=== PATIENT | male | born 1950 | race Caucasian/White ===

== ENCOUNTER 2020-02-11 09:05 | Emergency (ER) | payer MEDICARE, SELFPAY ==
--- NOTE | ~2020-02-11 | US_ITS ---
EXAMINATION:US venous doppler LE LT INDICATION:Left leg swelling TECHNIQUE: Multiple grayscale, color flow and Doppler images of the left lower extremity deep venous systems were obtained and reviewed. COMPARISON:No prior studies for comparison. FINDINGS: The common femoral, superficial femoral and popliteal veins demonstrate normal respiratory variation, augmentation and compressibility. Color flow is also seen within the posterior tibial, pe roneal, greater saphenous and profunda veins. IMPRESSION: 1: No lower extremity deep venous thrombosis. Reviewed, dictated and finalized at location A.
[2020-02-11 09:11] VITALS: BP 163/51; PULSE 71; RESP 18; TEMP 36.2; O2SAT 100
--- NOTE | 2020-02-11 10:03 | ED.LOWEXIN ---
HPI - Extremity Injury (Lower) General Chief Complaint: Extremity Injury, Lower Stated Complaint: possible blood clot left leg Time Seen by Provider: 02/11/20 09:19 History of Present Illness HPI Narrative: Patient is a 69-year-old male who presents ER with left lower extremity swelling. He had bumped his left dickson previously in the week and had an area of swelling. That is since gone down and his lower extremity has swelled around the ankle. He has some bruising dependently under his ankles bilaterally. No numbness or tingling. He is without any chest pain or shortness of breath. No history of DVT previously. Referred here by his PCP for DVT rule out. Related Data Home Medications Medication Instructions Recorded Confirmed cholecalciferol (vitamin D3) 125 mcg PO DAILY 02/11/20 [Vitamin D3] vitamin B complex [B 1 tablet PO DAILY 02/11/20 Complex-Vitamin B12] Allergies Allergy/AdvReac Type Severity Reaction Status Date / Time No Known Allergies Allergy Verified 02/11/20 09:24 Review of Systems Cardiovascular: Cardiovascular: Denies chest pain and Denies radiating jaw, neck or arm pain Respiratory: Respiratory: Denies cough and Denies dyspnea Musculoskeletal: Comments: Left lower extremity swelling and bruising. PMFSH Past Medical History Medical History (Updated 02/11/20 @ 10:09 by Jerry Machado MD) Anxiety Kidney stones Obstructive sleep apnea Surgical History Surgical History (Updated 02/11/20 @ 10:05 by Jerry Machado MD) No history of previous surgery Social History Social History Gender identity (if verbalized by the patient): Male Exam Narrative: Exam Narrative: GENERAL: Well-appearing, well-nourished, and in no acute distress. HEAD: Normocephalic, atraumatic. HEART: Regular rate and rhythm. Normal peripheral pulses. ABDOMEN: Soft, nontender, nondistended. EXTREMITIES: Normal range of motion. 2+ edema L>R. SKIN: Warm, dry, nburising inferior to ankles on left. NEURO: Alert and oriented x3. Course Vital Signs Vital signs: Vital Signs Temperature 97.1 F L 02/11/20 09:11 Pulse Rate 71 02/11/20 09:11 Respiratory Rate 18 02/11/20 09:11 Blood Pressure 163/51 H 02/11/20 09:11 Pulse Oximetry 100 02/11/20 09:11 Temperature 97.1 F L 02/11/20 09:11 Pulse Rate 71 02/11/20 09:11 Respiratory Rate 18 02/11/20 09:11 Blood Pressure 163/51 H 02/11/20 09:11 Pulse Oximetry 100 02/11/20 09:11 MDM - Extremity Injury (Lower) Imaging Data Radiologist's impression: ITS Impressions Venous Doppler Study 02/11/20 09:41 IMPRESSION: 1: No lower extremity deep venous thrombosis. Discharge Plan Discharge Clinical Impression: Edema of left lower leg Patient Disposition: Home, Self-Care Condition: Stable Instructions: Edema (ED) Additional Instructions: Return the ER if you have chest pain or shortness of breath, you cannot keep down food or water, you have fever over 100.4 ?F, you have additional concerns. Prescriptions: No Action vitamin B complex [B Complex-Vitamin B12] Tablet 1 tablet PO DAILY RF: 0 cholecalciferol (vitamin D3) [Vitamin D3] 125 mcg (5,000 unit) Tablet 125 mcg PO DAILY RF: 0 Follow-up/Referrals: PHYSICIAN NOT ON STAFF,NONSTAFF [Primary Care Provider] - 1 Week
== END 2020-02-11 10:16 | disposition home or self-care (01) ==
PROVIDERS: Emergency Provider Emergency Medicine
DX: R60.0 Localized edema (principal); G47.33 Obstructive sleep apnea (adult) (pediatric)
CPT/HCPCS: 93971; 99284

== ENCOUNTER 2022-04-17 13:29 | Emergency (ER) | payer MEDICARE, SELFPAY ==
--- NOTE | ~2022-04-17 | CT_ITS ---
EXAMINATION: CT abdomen pelvis w con INDICATION: Left lower quadrant pain TECHNIQUE: Computed tomographic images of the abdomen and pelvis were obtained after the administrati on of 100 cc of Omnipaque 350 intravenous contrast. The dose-length product (DLP) was 1454.43 mGy-cm. Automated exposure control and iterative reconstruction technique were employed. COMPARISON: 04/12/2016 FINDINGS: Minimal dependent atelectasis is present in the lung bases. The heart size is normal. There is a small sliding hiatal hernia. The liver, spleen, pancreas, gallbladder, and adrenal glands are n ormal. There are peripelvic cysts of the kidneys. There is a 2 mm stone in the distal left ureter whi ch causes mild left hydroureteronephrosis. No pathologically enlarged abdominal or pelvic lymph nodes are identified. There is calcified atherosclerosis of the aorta and many of the other arteries. [place] earle diverticulosis is present without evidence of diverticulitis. There is mild lumbar spondylosis. IMPRESSION: 1. 2 mm stone of the distal left ureter causing mild left hydroureteronephrosis. Reviewed, dictated and finalized at location F. RIBUTION DISPATCHER IMPRESSION: 1. 2 mm stone of the distal left ureter causing mild left hydroureteronephrosis .
--- NOTE | ~2022-04-17 | XR_ITS ---
EXAMINATION: XR abdomen/kub 1V INDICATION: Left ureteral stone TECHNIQUE: Supine views of the abdomen were obtained on 2 radiographs. COMPARISON: CT from today FINDINGS: There is moderate left hydroureteronephrosis. 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 The [address] described on CT is not definitely identified. Contrast from earlier CT opacifies the urinary bladder which may obscure the stone. There is mild osteoarthrit is of the hips. IMPRESSION: 1. Known distal left ureteral stone not definitely identified, possibly obscured by contrast material in the urinary bladder. Reviewed, dictated and finalized at location F. TABOUT HAND IMPRESSION: 1. Known distal left ureteral stone not definitely identified, possibly obscure d by contrast material in the urinary bladder.
[2022-04-17 14:04] VITALS: BP 151/69; PULSE 64; RESP 18; TEMP 36.7; O2SAT 98
[2022-04-17 14:33] LABS: Appearance Urine Clear (Clear); Bilirubin Urine Negative (Negative); Blood Urine Trace-intact (Negative); Color Urine Yellow (Yellow); Glucose Urine UA Negative (Negative); Ketones Urine Trace mg/dL (Negative); Leukocyte Esterase Ur Negative LEU/UL (Negative); Nitrate Urine Negative (Negative); Protein Urine Trace mg/dL (Negative); Urobilinogen Urine 0.2 mg/dL (<2.0); pH Urine 7.5 (5.0-9.0)
[2022-04-17 14:39] LABS: Mucus Urine Rare /lpf; WBC Urine 0-3 /hpf
[2022-04-17 14:40] LABS: Basophils Percent Auto 0.3 % (0.2-1.2); Eosinophils Percent Auto 0.3 % (0-4.4); Hematocrit 41.9 % (42.0-52.0); Hemoglobin 14.4 g/dL (14.0-18.0); Immature Granulocyte Absolute 0.07 K/mm3 (0.00-0.031); Immature Granulocyte Percent A 0.6 % (0-0.5); Lymphocytes Absolute Auto 0.99 K/mm3 (0.9-3.2); Mean Corpuscular HGB Conc 34.4 g/dl (32-36); Mean Corpuscular Hemoglobin 32.2 pg (26-34); Mean Corpuscular Volume 93.7 fl (80-100); Mean Platelet Volume 10.8 fl (7.4-10.4); Monocytes Absolute Auto 1.1 K/mm3 (0.1-0.6); Monocytes Percent Auto 9.6 % (2.6-8.5); Neutrophils Absolute Auto 8.8 K/mm3 (1.3-6.7); Neutrophils Percent Auto 80.2 % (45.5-73.1); Platelet Count Result 207 k/mm3 (150-375); Red Blood Count 4.47 M/mm3 (4.6-6.20); Red Cell Distribution Width 12.7 % (11.5-14.5)
[2022-04-17 14:41] LABS: Add Urine Microscopic? YES
[2022-04-17 14:42] LABS: Alanine Aminotransferase 22 U/L (6-50); Albumin Level 4.2 g/dL (3.5-5.1); Alkaline Phosphatase 61 U/L (38-126); Anion Gap 11 mmol/L (8-16); Aspartate Amino Transferase 30 U/L (17-59); Bilirubin,Total 0.7 mg/dL (0.2-1.3); Blood Urea Nitrogen 10 mg/dL (9-20); Calcium 8.9 mg/dL (8.4-10.2); Carbon Dioxide 28 mmol/L (22-30); Chloride 99 mmol/L (98-107); Estimated CRCL calculation 59 ml/min; Estimated Glomerular Filt Rate 54; Glucose 120 mg/dL (65-110); Lipase 82 U/L (23-300); Potassium 4.4 mmol/L (3.4-5.0); Sodium 138 mmol/L (137-145)
--- NOTE | 2022-04-17 17:23 | ED.ABDPAIN ---
HPI - Abdominal Pain General Chief Complaint: Abdominal Pain Stated Complaint: ABD PAIN Time Seen by Provider: 04/17/22 17:17 Source: RN notes reviewed History of Present Illness HPI narrative: Patient presents emergency room from home for abdominal pain. Patient states pain began approximately 30 this morning. The pain is located left lower quadrant and radiates around to the back described as sharp and stabbing in nature. States is associated with nausea. Denies any fevers or chills vomiting or diarrhea. Patient states he did take ibuprofen earlier today with minimal relief states he does have a history of kidney stones Related Data Home Medications Medication Instructions Recorded Confirmed cholecalciferol (vitamin D3) 125 125 mcg PO DAILY 02/11/20 mcg (5,000 unit) tablet (Vitamin D3) vitamin B complex (B 1 tablet PO DAILY 02/11/20 Complex-Vitamin B12 tablet) Allergies Allergy/AdvReac Type Severity Reaction Status Date / Time No Known Allergies Allergy Verified 02/11/20 09:24 Review of Systems Review of Systems: Gen.: Denies fevers or chills ENT: Denies congestion Respiratory: Denies shortness of breath or cough CV: Denies chest pain or palpitations GI: See HPI denies burning, urgency, frequency or hematuria Musculoskeletal: Denies back pain or muscle pain Neuro: Denies numbness, tingling, weakness or focal weakness Skin: Denies rash Except as documented, all other systems reviewed and negative [facility] Past Medical History Medical History Anxiety Kidney stones Obstructive sleep apnea Surgical History Surgical History (Updated 02/11/20 @ 10:05 by Jerry Machado MD) No history of previous surgery Social History Social History (Updated 04/17/22 @ 17:24 by Morgan Bella DO) Smoking status: Never smoker Gender identity (if verbalized by the patient): Male Exam Narrative: APPEARANCE: No acute distress, nontoxic, resting in bed HEENT: Normocephalic, atraumatic, OMM RESPIRATORY: No respiratory distress, clear to auscultation bilaterally with no rhonchi wheezing or rales CARDIOVASCULAR: RRR s murmur ABDOMINAL: Soft nondistended tender palpation left upper quadrant left lower quadrant no tenderness in right upper quadrant right lower quadrant no rebound or guarding MUSCULOSKELETAl: Moves all extremities. No clubbing, cyanosis or edema. NEURO: Awake and alert. Following commands, speech normal, no focal deficits SKIN:: Warm, dry. Normal Color PSYCHIATRIC: Normal affect/mood Course Course Emergency Course: Patient states he is feeling much better at this time ready for discharge Discussed with patient results of workup and diagnosis. Discussed need for follow-up with primary care, proper use of medication, and reasons to return to the emergency department. Patient understands and agrees to current treatment plan Vital Signs Vital signs: Vital Signs Temperature 98.1 F 04/17/22 14:04 Pulse Rate 64 04/17/22 14:04 Respiratory Rate 18 04/17/22 14:04 Blood Pressure 151/69 H 04/17/22 14:04 Pulse Oximetry 98 04/17/22 14:04 Oxygen Delivery Room Air 04/17/22 14:04 Temperature 98.1 F 04/17/22 14:04 Pulse Rate 64 04/17/22 14:04 Respiratory Rate 18 04/17/22 14:04 Blood Pressure 151/69 H 04/17/22 14:04 Pulse Oximetry 98 04/17/22 14:04 Oxygen Delivery Room Air 04/17/22 14:04 MDM - Abdominal Pain Lab Data Result diagrams: 04/17/22 14:18 04/17/22 14:18 Labs: Lab Results 04/17/22 04/17/22 04/17/22 Range/Units 14:18 14:18 14:25 WBC 11.0 H (4.5-10.0) K/mm3 RBC 4.47 L (4.6-6.20) M/mm3 Hgb 14.4 (14.0-18.0) g/dL Hct 41.9 L (42.0-52.0) % MCV 93.7 (80-100) fl MCH 32.2 (26-34) pg MCHC 34.4 (32-36) g/dl RDW 12.7 (11.5-14.5) % Plt Count 207 (150-375) k/mm3 MPV 10.8 H (7.4-10.4) fl Immature Gran % (Aut
[2022-04-17] MEDS: MORPHINE SULFATE (*CRX) 4 MG/ML INJ IV PUSH (17:39)
[2022-04-17] MEDS: ONDANSETRON INJ 4 MG/2 ML VIAL IV PUSH (17:39)
[2022-04-17] MEDS: SODIUM CHLORIDE 0.9% IV 1,000 ML 999 ML IV CONT (17:39)
[2022-04-17] MEDS: TAMSULOSIN HCL 0.4 MG CAPSULE PO (18:28)
[2022-04-17] MEDS: KETOROLAC 15 MG/ML VIAL (*BKC) IV PUSH (18:55)
== END 2022-04-17 19:50 | disposition home or self-care (01) ==
PROVIDERS: Emergency Medicine; Emergency Provider Emergency Medicine
DX: N13.2 Hydronephrosis with renal and ureteral calculous obstruction (principal); Z87.442 Personal history of urinary calculi; G47.33 Obstructive sleep apnea (adult) (pediatric); Q62.5 Duplication of ureter
CPT/HCPCS: 36415; 74018; 74177; 80053; 81001; 83690; 85025; 96361; 96374; 96375; 99284; A9270; J1885; J2270; J2405; J7030; Q9967

== ENCOUNTER → 2023-03-26 11:21 | Outpatient (CLI) | payer MEDICARE, SELFPAY ==
--- NOTE | ~2023-03-26 | XR_ITS ---
XR knee RT min 4V 03/26/2023 11:39 Indication: Right knee pain Procedure: 4 views right knee Comparison: No prior studies for comparison. Findings: There is anatomic alignment. No significant joint space narrowing. No joint effusion. No fr acture or traumatic malalignment. Impression: 1: No significant bone or joint abnormality. Reviewed, dictated and finalized at location L. Impression: 1: No significant bone or joint abnormality.
== END ==
PROVIDERS: PCP Family Medicine; Visit Provider Family Medicine
DX: M25.561 Pain in right knee (principal)
CPT/HCPCS: 73564

== ENCOUNTER 2023-05-13 08:50 | Outpatient (CLI) | payer MEDICARE, SELFPAY ==
[2023-05-13 12:40] LABS: Basophils Percent Auto 0.4 % (0.2-1.2); Eosinophils Absolute Auto 0.1 K/mm3 (0-0.3); Eosinophils Percent Auto 1.3 % (0-4.4); Hematocrit 46.6 % (42.0-52.0); Hemoglobin 15.4 g/dL (14.0-18.0); Immature Granulocyte Absolute 0.03 K/mm3 (0.00-0.031); Immature Granulocyte Percent A 0.4 % (0-0.5); Lymphocytes Absolute Auto 1.22 K/mm3 (0.9-3.2); Lymphocytes Percent Auto 17.1 % (18.3-44.2); Mean Corpuscular Hemoglobin 32.5 pg (26-34); Mean Corpuscular Volume 98.3 fl (80-100); Mean Platelet Volume 10.8 fl (7.4-10.4); Monocytes Absolute Auto 0.9 K/mm3 (0.1-0.6); Monocytes Percent Auto 12.3 % (2.6-8.5); Neutrophils Absolute Auto 4.9 K/mm3 (1.3-6.7); Neutrophils Percent Auto 68.5 % (45.5-73.1); Platelet Count Result 200 k/mm3 (150-375); Red Blood Count 4.74 M/mm3 (4.6-6.20); Red Cell Distribution Width 13.3 % (11.5-14.5); White Blood Count 7.2 K/mm3 (4.5-10.0)
[2023-05-13 12:55] LABS: Alanine Aminotransferase 25 U/L (6-50); Albumin Level 4.3 g/dL (3.5-5.1); Alkaline Phosphatase 62 U/L (38-126); Anion Gap 8 mmol/L (8-16); Aspartate Amino Transferase 54 U/L (17-59); Bilirubin,Total 1.5 mg/dL (0.2-1.3); Blood Urea Nitrogen 11 mg/dL (9-20); Calcium 9.3 mg/dL (8.4-10.2); Carbon Dioxide 26 mmol/L (22-30); Chloride 102 mmol/L (98-107); Estimated Glomerular Filt Rate > 60; Glucose 95 mg/dL (65-110); Potassium 4.2 mmol/L (3.4-5.0); Sodium 136 mmol/L (137-145)
[2023-05-13 13:09] LABS: Free T4 Free Thyroxine 1.71 ng/mL (0.78-2.19)
[2023-05-13 13:15] LABS: Prostate Specific Antigen 1.1 ng/mL (< OR = 4.0)
[2023-05-13 13:33] LABS: Hemoglobin A1C 5.6 % (<5.7)
== END 2023-05-13 08:51 | disposition home or self-care (01) ==
LOC: ANHGOSHLAB 08:52
PROVIDERS: PCP Family Medicine; Visit Provider Family Medicine
DX: Z12.5 Encounter for screening for malignant neoplasm of prostate (principal); R73.9 Hyperglycemia, unspecified; E55.9 Vitamin D deficiency, unspecified; G47.33 Obstructive sleep apnea (adult) (pediatric); R53.83 Other fatigue
CPT/HCPCS: 36415; 80053; 82306; 83036; 84153; 84439; 84443; 85025; G0103

== ENCOUNTER 2023-07-12 18:51 | Emergency (ER) | payer MEDICARE, SELFPAY ==
[2023-07-12 18:53] VITALS: BP 176/68; PULSE 70; RESP 18; TEMP 36.5; O2SAT 99
--- NOTE | 2023-07-12 19:02 | PC.NURSE ---
Upon taking patients home dressing off the bleeding had stopped so pt decided to go home with dressing in place.
== END 2023-07-12 19:52 | disposition left against medical advice (07) ==
LOC: ANHED 19:45
DX: S61.204A Unspecified open wound of right ring finger without damage to nail, initial encounter (principal); W27.4XXA Contact with kitchen utensil, initial encounter
CPT/HCPCS: 99199

== ENCOUNTER 2024-04-02 16:34 | Emergency (ER) | payer MEDICARE, SELFPAY ==
--- NOTE | ~2024-04-02 | XR_ITS ---
XR finger 3rd RT min 2V DATE: 04/02/2024 17:10 INDICATION: Injury to distal third digit TECHNIQUE: 4 views COMPARISON: None FINDINGS: Prominent dorsal spurring of the base of the distal phalanx. No fracture or dislocation, periosteal reaction or bone destruction or radiopaque soft tissue foreign body or subcutaneous emphysema. IMPRESSION: No fracture or dislocation Reviewed, dictated and finalized at location A. IMPRESSION: No fracture or dislocation
[2024-04-02 16:45] VITALS: BP 139/70; PULSE 58; RESP 20; TEMP 37.1; O2SAT 96
--- NOTE | 2024-04-02 16:49 | ED_ITS ---
HPI - General Adult General Chief complaint: Extremity Injury, Upper Stated complaint: right middle finger swollen Source: patient Mode of arrival: ambulatory Limitations: no limitations History of Present Illness HPI narrative: 73-year-old male presented for complaint of right middle finger pain and swelling after injury yesterday. He states he struck the finger on a wall when he reached his arm out quickly to prevent a fall. Pain is reported to the DIP joint of the middle finger, and reports painful range of motion. Denies deformity. Took ibuprofen this morning. Related Data Allergies Allergy/AdvReac Type Severity Reaction Status Date / Time No Known Allergies Allergy Verified 04/02/24 17:03 Review of Systems Review of Systems: CONSTITUTIONAL: Denies body aches, fever, chills CARDIOVASCULAR: Denies chest pain, palpitations, or edema. RESPIRATORY: Denies cough or dyspnea. SKIN: Denies wounds. MUSCULOSKELETAL: Reports right middle finger pain NEUROLOGIC: Denies headache, numbness, tingling, or weakness. All systems reviewed & are unremarkable except as noted in HPI and below PMFSH Past Medical History Medical History Anxiety Arthritis Basal cell carcinoma (BCC) Kidney stones Obstructive sleep apnea Surgical History Surgical History No history of previous surgery Family History Family History Sibling Basal cell carcinoma (BCC) Anxiety Depression Social History Social History Smoking status: Former smoker Additional smoking assessment comments: quit over 30 years ago, smoked 8-10 years Alcohol intake: current Alcohol use details: 1-2 every couple of months Substance use: never Lack of Transportation: No Lack of Food: Never True Current Housing: I Have Housing Concerned About Future Housing: No Difficulty Paying Gas/Electric Bills: No Difficulty Paying for Meds: No Currently Unemployed: No Education: Bachelor's Degree Difficulty w/ Childcare or Family Care: No Gender identity (if verbalized by the patient): Male Comments At time of signature, I have reviewed and agree with nursing past medical, surgical, social and family history unless otherwise noted. Please see nursing chart for further information. There is no relevant family history pertinent to the presenting complaint Exam Narrative: GENERAL: Well-appearing CHEST: Speaks in full sentences. No respiratory distress. HEART: Regular rate and rhythm. Normal and equal peripheral pulses. EXTREMITIES: Right hand has normal strength and sensation, decreased range of motion of the right 3rd digit DIP due to pain with movement. Mild swelling over the DIP with firm tender subcutaneous nodule. No open wounds, or obvious deformity; alignment normal, pulse palpable and equal bilaterally, skin warm, dry, pink. Capillary refill less than 3 seconds. SKIN: Warm, dry NEURO: Alert and oriented x3. PSYCH: Normal mood and affect Course Course Emergency Course: Patient is aware of diagnosis, understands and agrees to treatment plan. Anticipatory guidance given. Patient agrees to follow-up as directed and is aware of reasons to seek care at the emergency department. Portions of this record may have been created with voice recognition software Level of Care: Express Care Visit Vital Signs Vital signs: Reviewed Procedures Orthopedic Splinting/Casting right 3rd digit: Upper Extremity Immobilizer: aluminum form splint Medical Decision Making [facility] Narrative Medical decision making narrative: Discussed physical exam findings and x-ray, metal finger splint applied. Advised supportive measures and signs/symptoms to go to the ER. Pt is appropriate for outpt treatment and f/u. Differential Diagnosis Differential Diagnosis: Finger sprain, dislocation, fracture Imaging Data Radiologist's impression: Patient: Axel Webb Jr. : 1950 MR#: [id number] Age: 73 Acct:[id number] Loc: [facility] ADM Date: 04/02/24Attending Dr: Ordering Physician: America Loera APRN Date of Service: 04/02/24 Procedure(s): XR finger 3rd RT min 2V Accession Number(s): [id number] cc: Diana Rm DO; Amercia Loera APRN~ XR finger 3rd RT min 2V DATE: 04/02/2024 17:10 INDICATION: Injury to distal third digit TECHNIQUE: 4 views COMPARISON: None FINDINGS: Prominent dorsal spurring of the base of the distal phalanx. No fracture or dislocation, periosteal reaction or bone destruction or radiopaque soft tissue foreign body or subcutaneous emphysema. IMPRESSION: No fracture or dislocation Discharge Plan Discharge Clinical Impression: Finger pain, right Patient Disposition: Home, Self-Care Condition: Stable Instructions: Finger Sprain (ED) Additional Instructions: Rest and elevate the right hand Apply ice 15-20 minute intervals several times a day You can use a metal finger splint to keep it protected in to reduce pain with movement, however remember to take it off frequently to perform gentle range of motion exercises Motrin alternate with Tylenol every 8 hours as needed Follow up with your primary care provider next week Go to the ER for worsening symptoms or concerns Prescriptions: No Action (DME) CPAP Equipment See Rx Instructions .Route .MEDSUPPLY Qty: 1 0RF Rx Instructions: Rx: Alfred Fx nasal pillow Fit Pk., CPAP filters and tubing Dx: G47.33 DME: [facility] Length of Treatment: 99+ months *Please link me to patient's machine through [facility]* Physician: Dr. Diana Rm DO Follow-up/Referrals: Diana Rm DO [Primary Care Provider] -
== END 2024-04-02 17:28 | disposition home or self-care (01) ==
PROVIDERS: Emergency Provider Nurse Practitioner Family; PCP Family Medicine
DX: M79.644 Pain in right finger(s) (principal); M19.90 Unspecified osteoarthritis, unspecified site; Z85.828 Personal history of other malignant neoplasm of skin; Z87.891 Personal history of nicotine dependence
CPT/HCPCS: 29130; 73140; 99213; G0463

== ENCOUNTER 2024-05-19 11:20 | Outpatient (CLI) | payer MEDICARE, SELFPAY ==
[2024-05-19 12:34] LABS: Basophils Percent Auto 0.5 % (0.2-1.2); Eosinophils Absolute Auto 0.1 K/mm3 (0-0.3); Eosinophils Percent Auto 1.7 % (0-4.4); Hematocrit 41.9 % (42.0-52.0); Hemoglobin 14.3 g/dL (14.0-18.0); Immature Granulocyte Absolute 0.02 K/mm3 (0.00-0.031); Immature Granulocyte Percent A 0.3 % (0-0.5); Lymphocytes Absolute Auto 1.46 K/mm3 (0.9-3.2); Mean Corpuscular HGB Conc 34.1 g/dl (32-36); Mean Corpuscular Hemoglobin 33.3 pg (26-34); Mean Corpuscular Volume 97.4 fl (80-100); Monocytes Absolute Auto 0.9 K/mm3 (0.1-0.6); Monocytes Percent Auto 13.6 % (2.6-8.5); Neutrophils Absolute Auto 4.1 K/mm3 (1.3-6.7); Neutrophils Percent Auto 61.9 % (45.5-73.1); Platelet Count Result 189 k/mm3 (150-375); Red Cell Distribution Width 12.7 % (11.5-14.5); White Blood Count 6.6 K/mm3 (4.5-10.0)
[2024-05-19 13:05] LABS: Cholesterol 160 mg/dL (0-200); HDL Direct 31 mg/dL; Triglycerides 213 mg/dL (<150)
[2024-05-19 13:13] LABS: Vitamin D 25 Hydroxy 23.5 ng/mL
[2024-05-19 13:18] LABS: LDL Cholesterol Direct 84 mg/dL
[2024-05-19 13:37] LABS: Prostate Specific Antigen 1.3 ng/mL (< OR = 4.0)
[2024-05-19 14:55] LABS: Hemoglobin A1C 5.6 % (<5.7)
== END 2024-05-19 11:21 | disposition home or self-care (01) ==
PROVIDERS: PCP Family Medicine; Visit Provider Family Medicine
DX: R53.83 Other fatigue (principal); R73.9 Hyperglycemia, unspecified; E55.9 Vitamin D deficiency, unspecified; E66.9 Obesity, unspecified; Z12.5 Encounter for screening for malignant neoplasm of prostate
CPT/HCPCS: 36415; 80061; 82306; 83036; 84153; 84439; 84443; 85025; G0103

== ENCOUNTER 2024-10-13 11:50 | Outpatient (CLI) | payer MEDICARE, SELFPAY ==
--- NOTE | ~2024-10-13 | XR_ITS ---
AP view of the pelvis and AP and lateral views of the lateral hips Clinical history: Pain Findings: No acute fracture or dislocation is seen. Osseous alignment is anatomic. There is minimal d egenerative change of the right hip joint. Left hip joint intact. Soft tissues are unremarkable. Impression: Minimal degenerative change of the right hip joint. Reviewed, dictated and finalized at location . Impression: Minimal degenerative change of the right hip joint.
--- NOTE | ~2024-10-13 | XR_ITS ---
Right Shoulder Technique: AP and scapular Y views were obtained. Clinical History: Pain Findings: No fracture or dislocation is seen. Osseous alignment is anatomic. The glenohumeral and acr omioclavicular joint distention mild degenerative change. Soft tissues are unremarkable. Impression: Mild degenerative changes, as above. Reviewed, dictated and finalized at location . Impression: Mild degenerative changes, as above.
== END 2024-10-13 11:51 | disposition home or self-care (01) ==
LOC: GOSHIMG 11:52
PROVIDERS: PCP Family Medicine; Visit Provider Family Medicine
DX: M19.011 Primary osteoarthritis, right shoulder (principal); M25.551 Pain in right hip; G89.29 Other chronic pain
CPT/HCPCS: 73030; 73521

== ENCOUNTER 2025-05-10 08:57 | Outpatient (CLI) | payer MEDICARE, SELFPAY ==
--- NOTE | ~2025-05-10 | XR_ITS ---
EXAMINATION: XR shoulder LT min 2V, 05/10/2025 9:05 MANAGER EPIC HISTORY: Left shoulder pain. No trauma COMPARISON: No comparisons available. Findings: No acute fracture or malalignment. Moderate degenerative changes Soft tissues unremarkable. Impression: No acute fracture or malalignment. Reviewed, dictated and finalized at location P. GER EPIC Impression: No acute fracture or malalignment.
--- NOTE | ~2025-05-10 | XR_ITS ---
XR cervical spine min 6V Indication: Cervical spine stenosis, pain x 1 month, no inj, no surg, Comparison: None Findings: No fracture is identified, no subluxation flexion extension. Mild loss of disc height at C4-5 C5-6 and C6-7 with mild narrowing of the foramina bilaterally Soft tissues unremarkable Impression: No acute abnormality. Reviewed, dictated and finalized at location P. TGENOLOGIST Impression: No acute abnormality.
== END 2025-05-10 08:58 | disposition home or self-care (01) ==
PROVIDERS: PCP Family Medicine; Visit Provider Family Medicine
DX: R20.2 Paresthesia of skin (principal); M25.512 Pain in left shoulder
CPT/HCPCS: 72052; 73030

== ENCOUNTER 2025-05-24 07:31 | Outpatient (CLI) | payer MEDICARE, SELFPAY ==
--- NOTE | ~2025-05-24 | NM_ITS ---
EXAMINATION: NM geovanni stress w perfusion DATE: 05/24/2025 11:28 INDICATION: Abnormal electrocardiogram. TECHNIQUE: Rest images were obtained following intravenous administration of 10.4 mCi Tc99m tetrofosmin (Myoview). The patient was infused intravenously with Lexiscan (regadenoson). Then, 31 mCi Tc99m tetrofosmin (Myoview) was administered intravenously, and stress images were obtained. Data was recons tructed into short axis and horizontal and vertical long axis SPECT images. Gated SPECT images were also obtained. COMPARISON: None. FINDINGS: There is no definite reversible or fixed perfusion abnormality to suggest ischemia or infarction. There is no segmental wall motion abnormality. Left ventricular ejection fraction measures >70%. IMPRESSION: 1. No definite ischemia or infarct. 2. Normal left ventricular ejection fraction measuring >70%. Reviewed, dictated and finalized at location E. ERN PAINTER
--- OUTSIDE RECORDS SUMMARY | 2025-05-24 07:34 | XMS_ITS | Clinical Summary ---
Author Organization [employer] [facility] lin Address [address] [facility] [place] [place] [address] Care Team Providers Care Bulb Packer Name Role Phone Unavailable Primary Care Provider Unavailabl e Social History Tobacco Use Types Packs/Day Years Used Date Smoking Tobacco: Never Assessed Sex and Gender Information Value Date Recorded Sex Assigned at Not on file Legal Sex Male 2:04 PM EST Gender Identity Not on file Sexual Orientation Not on file Plan of Treatment Not on file Medical Devices Not on file Insurance MEDICARE
--- OUTSIDE RECORDS SUMMARY | 2025-05-24 07:34 | XMS_ITS | Clinical Summary ---
Author Organization [facility] [employer] Address [address] [place] [address] Care Team Providers Care Core Analysis Operator Name Role Phone Italo Mendez MD Primary Care Provider Devin Hines MD Unavailable Unavailable Eyal Givens MD Unavailable [phone] Source Comments [facility],non-owned Affiliates and Associated Physician Practices is amultiple site organization consisting of ambulatory clinics and hospital sitesin [place], [place], [place] and [place]. This disclosure is being madepursuant to the Care Everywhere program and may not contain all information available regarding this patient. Last updated 18.[facility] [employer] [employer] Allergies No known active allergies Medications * Be aware that medications may not be up to date on this document. Alwaysverify current medications with the patient. gabapentin (NEURONTIN) 300 MG capsule Take 1 (one) capsule by mouth once daily as needed 06/06/2021 Active Active Problems Problem Noted Date Diagnosed Date Stenosis of cervical spine with myelopathy 04/05 BMI 40.0-44.9, adult 07/23/2015 Mixed hyperlipidemia 02/01/2014 Morbid obesity 02/01/2014 Elevated blood pressure read ing without diagnosis of hypertension 02/01/2014 Osteoarthritis 02/01/2014 Overview (03/01/2015): Cervical spondylosis with myelopathy 02/01/2014 Personal history of urinary calculi 02/01/2014 Pilonidal cyst 02/01/2014 Overview (03/01/2015): Resolved Problems Problem Noted Date Diagnosed Date Resolved Date Obesity 02/01/2014 08/16/2015 Overview (03/01/2015): Right flank pain 12/26/2009 02/01/2014 Immunizations Immunization Administration Dates Next Due COVID PFIZER 12+YR 30MCG/0.3mL 04/06/2024 COVID PFIZER BIVALENT 12Y+ 30mcg/0.3ML 03/10/2022 Covid Pfizer primary monoval ent 12+ yr 0.3mL Purple cap 03/27/2021,08/17/2020,07/27/2020,2020 INFLUENZA VACCINE 06/14/2021, 0,03/21/2020,2016,03/01/2015,03/01/2015,03/01/2013,1 INFLUENZA VACCINE, ADJUVANTE D, QUADR. (FLUAD QUADRIVALENT; 65Y+) (AIIV4) 04/01/2023,04/16/2022 INFLUENZA VACCINE, ADJUVANTE D, TRIV. (FLUAD TRIVALENT; 65Y+) (AIIV3) 04/06/2024,04/01/2019,04/01/2019 INFLUENZA VACCINE, HIGH-DOSE , QUADR. (FLUZONE HIGH-DOSE QUADRIVALENT; 65Y+), 0.7 ML (HD-IIV4) 03/21/2020,03/21/2020 INFLUENZA VACCINE, HIGH-DOSE , TRIV. (FLUZONE HIGH-DOSE TRIVALENT; 65Y+) (HD-IIV3) 03/29/2017 PNEUMOCOCCAL PPSV23 06/17/2018,06/13/2018 PNEUMOCOCCAL PPV VACCINE 06/13/2018 Pneumococcal Pcv13 Conj 03/30/2017,03/29/2017 RSV AREXVY 60YR+ 0.5ML 04/06/2024 TDAP (7yrs+) 06/08/2017,08/21/2010,08/21/2010 TDAP, HISTORIC VACCINE 08/21/2010 Family History Medical History Relation Name Comments Cancer Brother skin Cancer Father multiple myelom a Hypercholesterolemia Mother NC Mother Bipolar Disorder Sister 1 Spine problems Sister 2 braced Cancer - Colon Neg Hx Relation Name Status Comments Brother Father (Age 81) multiple m yeloma Mother (Age 92) Sister 1 Sister 2 Social History Tobacco Use Types Packs/Day Years Used Date Smoking Tobacco: Former Cigarettes Cigars Smokeless Tobacco: Never Tobacco Cessation:Counseling Given: Not Answered Comments:3-5 cigars a year Alcohol Use Standard Drinks/Week Comments Not Currently 3 (1 standard drink = 0.6 oz pure alcohol) 1-2 gin and tonic a few times a week PHQ-2 Answer Date Recorded PHQ2 TOTAL SCORE 1 04/16/2022 Sex and Gender Information Value Date Recorded Sex Assigned at Male 04/02/2020 8:12 AM BAY STOCKER Legal Sex Male 6:21 AM BAY STOCKER Gender Identity Male 04/02/2020 8:12 AM BAY STOCKER Sexual Orientation Not on file Last Filed Vital Signs Vital Sign Reading Time Taken Comments Blood Pressure 132/70 04/16/2022 11:48 AM BAY STOCKER Pulse 64 04/16/2022 11:48 AM BAY STOCKER Temperature 36.5 C (97.7 F) 04/16/2022 11:48 AM BAY STOCKER Respiratory Rate 16 04/16/2022 11:48 AM BAY STOCKER Oxygen Saturation 97% 04/16/2022 11:48 AM BAY STOCKER Inhaled Oxygen Concentration - - Weight 122.5 kg (270 lb) 04/16/2022 11:48 AM BAY STOCKER Height 177.8 cm (5' 10) 04/16/2022 11:48 AM BAY STOCKER Body Mass Index 38.74 04/16/2022 11:48 AM BAY STOCKER Plan of Treatment Health Maintenance Due Date Last Done Comments HEPATITIS C SCREENING 07/26/1966 ZOSTER VACCINE (1 of 2) 1998 MEDICARE AWV 12 MONTHS 06/14/2022 06/14/2021, 04/05/2020, 12/23/2018, Additional history exists DEPRESSION SCREENING 06/01/2024 09/04/2021 COVID-19 VACCINE ( season) 2025 04/06/2024, 03/10/2022, 03/27/2021, Additional history exists INFLUENZA VACCINE (#1) 2025 , 04/01/2023, 04/16/2022, Additional history exists DTAP/TDAP/TD VACCINES (5 - Td or Tdap) 06/08/2027 06/08/2017, 08/21/2010, 08/21/2010, Additional history exists PNEUMOCOCCAL VACCINE 50+ Completed 019, 06/13/2018, 06/13/2018, Additional history exists Respiratory Syncytial Virus (RSV) Vaccine Pt: or over 60 yrs Completed 04/06/2024 HEPATITIS B VACCINE Aged Out No longe r eligible based on patient's age to complete this topic HIB VACCINE Aged Out No longer eligi ble based on patient's age to complete this topic HPV VACCINE Aged Out No longer eligi ble based on patient's age to complete this topic MENINGOCOCCAL (Group B) VACCINE SHARED DECISION-MAKING Aged Out No longer eligible based on patient's age to complete this topic MENINGOCOCCAL GROUPS A/C/Y/W VACCINE Aged Out No longer eligible based on patient's age to complete this topic Insurance MEDICARE [facility] MEDICARE [facility] Care Teams Core Analysis Operator Relationship Specialty Start Date End Date Italo Mendez MD PCP - General Family Medicine 05/31/15 Devin Hines MD Consulting Physician Ophthalmology 08/21/15 [place] [id number] [address] Physical Medicine and Rehabilitation 04/27/18
--- OUTSIDE RECORDS SUMMARY | 2025-05-24 07:34 | XMS_ITS | Encounter Summary ---
Author Organization [facility] Address [address] [place] [address] Care Team Providers Care Bi Tester Name Role Phone Javid Chang MD Primary Care Provider [phone] Italo Mendez MD Primary Care Provider Devin Hines MD Unavailable Unavailable Eyal Givens MD Unavailable [phone] Italo Mendez MD Unavailable [phone] Eyal Givens MD Unavailable Italo Mendez MD Unavailable [phone] America Thornton Unavailable Eyal Givens MD Unavailable [phone] America Thornton Unavailable Encounter Details Date Type Department Care Team (Late st Contact Info) Description 04/27/2013 [facility] Outpatient Visit [facility] - Family Medicine [address] [place] [address] [place] [id number] [place] [address] Social History Tobacco Use Types Packs/Day Years Used Date Smoking Tobacco: Former Cigarettes 1 Q uit: 08/03/1988 Alcohol Use Standard Drinks/Week Comments Yes 0 (1 standard drink = 0.6 oz pur e alcohol) Sex and Gender Information Value Date Recorded Sex Assigned at Male 04/02/2020 8:12 AM STEM LEAD FORMER Legal Sex Male 6:21 AM STEM LEAD FORMER Gender Identity Male 04/02/2020 8:12 AM STEM LEAD FORMER Sexual Orientation Not on file documented as of this encounter Plan of Treatment Not on file documented as of this encounter Visit Diagnoses Not on filedocumented in this encounter Care Teams Bi Tester Relationship Specialty Start Date End Date Javid Chang MD PCP - General Family Medicine 07/05/12 05/30/15 Italo Mendez MD PCP - General Family Medicine 05/31/15 Italo Mendez MD [address] [place] [address] PCP - Attributed-MSSP 12/30/18 11/29/19 [place] [id number] [facility] [address] [place] [address] PCP - Attributed-MSSP 11/30/19 0 Italo Mendez MD [address] [place] [address] PCP - Attributed-MSSP 04/01/20 11/24/23 [place] [id number] [facility] [address] [place] [address] PCP - Attributed-MSSP 10/30/18 12/29/18 Devin Hines MD Consulting Physician Ophthalmology 08/21/15 [place] [address] [place] [address] Physical Medicine and Rehabilitation 04/27/18 America Thornton Care Coordination Specialist Care Management 09/07/23 09/07/23 America Thornton Care Coordination Specialist Care Management 08/01/24 08/01/24 documented as of this encounter
--- NOTE | 2025-05-24 08:30 | EST_ITS ---
Patient Info Name: Axel Webb Age: 74 years : 1950 Gender: Male Ht: 69 in Wt: 270 lbs BSA: 2.50 m2 HR: 60 bpm BP: 127 / 69 mmHg Exam Date: 05/24/2025 8:30 AM Patient Status: O Admit Date: 05/24/2025 Exam Type: CA stress test treadmill w NM A nuclear stress test was performed. Staff Referring Physician: Diana Rm Attending Provider: Diana Rm Exercise Technologist: Andreia Mckenzie Exercise Physician: Jude Ahmadi DO Summary 1. 1. Negative Bradford exercise stress test for ischemic ST changes by ECG criteria. 2. 2. Reduced functional capacity, achieving 7 METs of workload. 3. 3. Appropriate HR response to exercise. 4. 4. Appropriate HR recovery at 1 minute post exercise. 5. 5. Nuclear scan to follow and will be reported separately. Please correlate with it. 6. 6. Patient informed of the above results. Protocol: Bradford Stress ECG Details Stage: REST Duration (min): 0 min : 49 sec Speed (mph): 0.0 Grade (%): 0 HR (bpm): 60 SBP (mmHg): 127 DBP (mmHg): 69 METS: --- Stage: REST Duration (min): 5 min : 23 sec Speed (mph): 0.0 Grade (%): 0 HR (bpm): 83 SBP (mmHg): 127 DBP (mmHg): 69 METS: --- Stage: STAGE 1 Duration (min): 1 min : 0 sec Speed (mph): 1.7 Grade (%): 10 HR (bpm): 99 SBP (mmHg): 127 DBP (mmHg): 69 METS: --- Stage: STAGE 1 Duration (min): 2 min : 0 sec Speed (mph): 1.7 Grade (%): 10 HR (bpm): 113 SBP (mmHg): 127 DBP (mmHg): 69 METS: --- Stage: STAGE 1 Duration (min): 3 min : 0 sec Speed (mph): 1.7 Grade (%): 10 HR (bpm): 115 SBP (mmHg): 174 DBP (mmHg): 58 METS: --- Stage: STAGE 2 Duration (min): 1 min : 0 sec Speed (mph): 2.5 Grade (%): 12 HR (bpm): 113 SBP (mmHg): 174 DBP (mmHg): 58 METS: --- Stage: STAGE 2 Duration (min): 2 min : 0 sec Speed (mph): 2.5 Grade (%): 12 HR (bpm): 129 SBP (mmHg): 182 DBP (mmHg): 64 METS: --- Stage: STAGE 2 Duration (min): 2 min : 20 sec Speed (mph): 2.5 Grade (%): 12 HR (bpm): 130 SBP (mmHg): 182 DBP (mmHg): 64 METS: --- Stage: RECOVERY Duration (min): 0 min : 39 sec Speed (mph): 0.0 Grade (%): 0 HR (bpm): 126 SBP (mmHg): 182 DBP (mmHg): 64 METS: --- Stage: RECOVERY Duration (min): 1 min : 39 sec Speed (mph): 0.0 Grade (%): 0 HR (bpm): 100 SBP (mmHg): 182 DBP (mmHg): 64 METS: --- Stage: RECOVERY Duration (min): 2 min : 39 sec Speed (mph): 0.0 Grade (%): 0 HR (bpm): 86 SBP (mmHg): 182 DBP (mmHg): 64 METS: --- Stage: RECOVERY Duration (min): 3 min : 39 sec Speed (mph): 0.0 Grade (%): 0 HR (bpm): 81 SBP (mmHg): 195 DBP (mmHg): 56 METS: --- Stage: RECOVERY Duration (min): 4 min : 39 sec Speed (mph): 0.0 Grade (%): 0 HR (bpm): 76 SBP (mmHg): 195 DBP (mmHg): 56 METS: --- Stage: RECOVERY Duration (min): 5 min : 39 sec Speed (mph): 0.0 Grade (%): 0 HR (bpm): 73 SBP (mmHg): 161 DBP (mmHg): 63 METS: --- Stage: RECOVERY Duration (min): 6 min : 39 sec Speed (mph): 0.0 Grade (%): 0 HR (bpm): 70 SBP (mmHg): 161 DBP (mmHg): 63 METS: --- Stage: RECOVERY Duration (min): 7 min : 39 sec Speed (mph): 0.0 Grade (%): 0 HR (bpm): 70 SBP (mmHg): 142 DBP (mmHg): 78 METS: --- Stage: RECOVERY Duration (min): 8 min : 39 sec Speed (mph): 0.0 Grade (%): 0 HR (bpm): 70 SBP (mmHg): 142 DBP (mmHg): 78 METS: --- Stage: RECOVERY Duration (min): 9 min : 28 sec Speed (mph): 0.0 Grade (%): 0 HR (bpm): 71 SBP (mmHg): 137 DBP (mmHg): 78 METS: --- Rest HR: 83 bpm Peak HR: 130 bpm Rest Sys BP: 127 mmHg Peak Sys BP: 195 mmHg Max Pred HR: 144 bpm % Max Pred HR: 90 % Target HR: 122 bpm Max RPP: 25,350 bpm*mmHg Gill Score: -2 Termination Reason: Reached target heart rate or workload Cardiac Symptoms: Shortness of breath Max ST Seg Deviation: -1.50 mm Total Time: 5 min : 20 sec Rest Marroquin BP: 69 mmHg Peak Marroquin BP: 56 mmHg Angina Score: None Total METS: 7.1 Resting ECG Sinus rhythm, IRBBB. Stress ECG No ST changes. Arrhythmias None. Report Signatures
== END 2025-05-24 07:32 | disposition home or self-care (01) ==
PROVIDERS: PCP Family Medicine; Visit Provider Family Medicine
DX: R94.31 Abnormal electrocardiogram [ECG] [EKG] (principal)
CPT/HCPCS: 78452; 93017; A9502